=== PATIENT | female | born 1970 | race Caucasian/White ===

== ENCOUNTER 2017-03-26 18:49 | Inpatient (IN) | payer BC ==
[~2017-03-26] VITALS: Ht 152.4 cm; Wt 71.8 kg
[~2017-03-26 18:49] MED LIST: ALBU6.7H INH; CYCL-1 PO; DOCU-28 PO; HYDR-569 PO; NO HOME MEDS
[2017-03-26 19:41] LABS: BASOPHILS % (AUTO) 0.7 % (0-1); EOSINOPHILS # (AUTO) 0.1 X10'3 (0-0.9); EOSINOPHILS % (AUTO) 0.8 % (0-6); HEMATOCRIT 35.3 % (35.0-45.0); HEMOGLOBIN 12.3 g/dl (12.0-16.0); LYMPHOCYTES # (AUTO) 1.3 X10'3 (1.1-4.8); LYMPHOCYTES % (AUTO) 15.5 % (21-51); MEAN CORPUSCULAR HGB CONC 34.9 % (33.0-36.5); MEAN CORPUSCULAR VOLUME 83.2 FL (78-98); MEAN PLATELET VOLUME 7.6 FL (7.4-10.4); MONOCYTES # (AUTO) 0.6 X10'3 (0-0.9); MONOCYTES % (AUTO) 6.7 % (2-12); NEUTROPHILS # (AUTO) 6.6 X10'3 (1.8-7.7); NEUTROPHILS % (AUTO) 76.3 % (42-75); PLATELET COUNT 305 X10'3 (140-440); RED BLOOD COUNT 4.24 X10'6 (4.20-5.60); RED CELL DISTRIBUTION WIDTH 13.7 % (11.5-14.5); WHITE BLOOD COUNT 8.7 X10'3 (4.5-11.0)
[2017-03-26 19:42] LABS: BASOPHILS # (AUTO) 0.1 X10'3 (0-0.2)
[2017-03-26] MEDS ORDERED: aspirin 81mg tab.chew PO ONE (19:45)
[2017-03-26] MEDS ORDERED: nitroGLYCERIN 0.4mg SUBLingual tab SL PRN ×3 (19:45→21:10)
[2017-03-26 19:48] LABS: INR 0.9 INR; PARTIAL THROMBOPLASTIN TIME 27 SECONDS (22-32); PROTHROMBIN TIME 9.8 SECONDS (9.0-12.0)
[2017-03-26 19:54] LABS: ALANINE AMINOTRANSFERASE 47 U/L (12-78); ALBUMIN 3.7 G/DL (3.4-5.0); ALKALINE PHOSPHATASE 128 IU/L (46-116); ANION GAP 10 (8-16); ASPARTATE AMINO TRANSFERASE 23 U/L (10-37); BILIRUBIN,TOTAL 0.3 MG/DL (0.1-1.0); BLOOD UREA NITROGEN 16 MG/DL (7-18); CALCIUM 8.8 MG/DL (8.5-10.1); CHLORIDE 104 MMOL/L (99-107); GLUCOSE 112 MG/DL (70-104); POTASSIUM 3.5 MMOL/L (3.5-5.1); SODIUM 142 MMOL/L (135-145); TOTAL CARBON DIOXIDE 28.5 MMOL/L (24-32); TOTAL PROTEIN 7.5 G/DL (6.4-8.2); eGFR 60 ML/MIN
[2017-03-26 20:22] LABS: D-DIMER 0.35 MG/L FEU (0-0.50)
[2017-03-26] MEDS ORDERED: cyclobenzaprine 10mg tablet PO PRN (21:00)
[2017-03-26] MEDS ORDERED: temazepam 15mg capsule PO PRN (21:00)
[2017-03-26] MEDS ORDERED: acetaminophen 325mg tablet PO PRN ×2 (21:05)
[2017-03-26] MEDS ORDERED: bisacodyl 10mg suppository rectal RC PRN (21:05)
[2017-03-26] MEDS ORDERED: HYDROcodone/acetaminophen 5mg/325mg tablet PO PRN (21:05)
[2017-03-26] MEDS ORDERED: diphenhydrAMINE 50 mg/ml inj IV PRN (21:05)
[2017-03-26] MEDS ORDERED: ondansetron/PF 4mg/2ml inj IV PRN (21:05)
[2017-03-26] MEDS ORDERED: HYDROcodone/acetaminophen 10/325mg tab PO PRN (21:05)
[2017-03-26] MEDS ORDERED: mag hydrox/Alum hydrox/simeth 30ml oral suspension PO PRN (21:05)
[2017-03-26] MEDS ORDERED: metoclopramide 5 mg/ml inj IV PRN (21:05)
[2017-03-26] MEDS ORDERED: diphenhydrAMINE 25mg capsule PO PRN (21:05)
[2017-03-26] MEDS ORDERED: magnesium hydroxide 30ml (MOM) UD suspension PO PRN (21:05)
[2017-03-26] MEDS ORDERED: aminophylline 250mg/10ml inj. IV PRN (21:10)
[2017-03-26] MEDS ORDERED: metoprolol tartrate 1mg/ml inj IV PRN (21:10)
[2017-03-26] MEDS ORDERED: regadenoson 0.4mg/5ml syringe IV PRN (21:10)
[2017-03-26 21:31] LABS: LIPASE 93 U/L (73-393); MAGNESIUM 1.8 MG/DL (1.5-2.4)
[2017-03-26] MEDS: normal saline 1000ml 1,000 ML IV SCH (23:39)
[2017-03-27] VITALS (11 sets, daily range): BP systolic 102–118; BP diastolic 58–71
[2017-03-27] MEDS ORDERED: non-formulary drug (Albuterol Sulfate (Proventil Hfa) 2 PUFFS) INH SCH (02:00)
[2017-03-27 03:49] LABS: CLARITY,URINE CLEAR (Clear); COLOR,URINE STRAW (Yellow); GLUCOSE, URINE NEGATIVE (Neg); KETONES,URINE NEGATIVE (Neg); LEUKOCYTE ESTERASE ,URINE NEGATIVE (Neg); NITRITES, URINE NEGATIVE (Neg); OCCULT BLOOD,URINE NEGATIVE (Neg); PROTEIN,URINE NEGATIVE (Neg); UROBILINOGEN,URINE 0.2 E.U/dL (0.2-1.0)
[2017-03-27 03:54] LABS: UA COLLECTION TYPE NON-SPECIFIED
[2017-03-27 04:00] LABS: URINE AMPHETAMINE SCREEN NEGATIVE (Neg); URINE BARBITUATE SCREEN NEGATIVE (Neg); URINE BENZODIAZEPINES SCREEN NEGATIVE (Neg); URINE CANNABINOID SCREEN NEGATIVE (Neg); URINE COCAINE SCREEN NEGATIVE (Neg); URINE METHADONE SCREEN NEGATIVE (Neg); URINE OPIATE SCREEN NEGATIVE (Neg); URINE PHENCYCLIDINE SCREEN NEGATIVE (Neg)
[2017-03-27] MEDS: normal saline 1000ml 1,000 ML IV SCH ×2 (07:01→17:01)
[2017-03-27] MEDS ORDERED: pantoprazole 40mg Tablet.DR PO SCH (07:30)
[2017-03-27] MEDS ORDERED: enoxaparin 100mg/ml syringe SQ SCH (08:00)
[2017-03-27] MEDS ORDERED: metoprolol tartrate 12.5mg (1/2 tablet) PO SCH (08:00)
[2017-03-27] MEDS ORDERED: atorvastatin 10mg tablet PO SCH (08:00)
[2017-03-27] MEDS ORDERED: lisinopril 5mg tablet PO SCH (08:00)
[2017-03-27] MEDS ORDERED: aspirin 81mg tab.chew PO SCH (08:00)
[2017-03-27] MEDS ORDERED: docusate sod 100mg capsule PO SCH (08:00)
[2017-03-27] MEDS: albuterol 2.5 MG/3 ML nebule NEB SCH ×2 (08:01→14:28)
[2017-03-27 08:38] LABS: BASOPHILS % (AUTO) 0.6 % (0-1); EOSINOPHILS # (AUTO) 0.1 X10'3 (0-0.9); EOSINOPHILS % (AUTO) 1.1 % (0-6); HEMATOCRIT 32.7 % (35.0-45.0); HEMOGLOBIN 11.6 g/dl (12.0-16.0); LYMPHOCYTES # (AUTO) 1.2 X10'3 (1.1-4.8); LYMPHOCYTES % (AUTO) 17.2 % (21-51); MEAN CORPUSCULAR HEMOGLOBIN 29.4 PG (27.0-31.0); MEAN CORPUSCULAR HGB CONC 35.5 % (33.0-36.5); MEAN CORPUSCULAR VOLUME 82.8 FL (78-98); MEAN PLATELET VOLUME 7.4 FL (7.4-10.4); MONOCYTES # (AUTO) 0.7 X10'3 (0-0.9); MONOCYTES % (AUTO) 10.8 % (2-12); NEUTROPHILS # (AUTO) 4.9 X10'3 (1.8-7.7); NEUTROPHILS % (AUTO) 70.3 % (42-75); PLATELET COUNT 277 X10'3 (140-440); RED BLOOD COUNT 3.95 X10'6 (4.20-5.60); RED CELL DISTRIBUTION WIDTH 13.7 % (11.5-14.5); WHITE BLOOD COUNT 6.9 X10'3 (4.5-11.0)
[2017-03-27 08:48] LABS: ALANINE AMINOTRANSFERASE 50 U/L (12-78); ALBUMIN 3.4 G/DL (3.4-5.0); ALKALINE PHOSPHATASE 120 IU/L (46-116); ANION GAP 8 (8-16); ASPARTATE AMINO TRANSFERASE 24 U/L (10-37); BILIRUBIN,TOTAL 0.5 MG/DL (0.1-1.0); BLOOD UREA NITROGEN 13 MG/DL (7-18); BUN/CREATININE RATIO 16.3 (6.6-38.0); CALCIUM 8.8 MG/DL (8.5-10.1); CHLORIDE 108 MMOL/L (99-107); CHOL/HDL RATIO 4.9 (0.00-4.99); CHOLESTEROL 201 MG/DL (0-200); GLUCOSE 93 MG/DL (70-104); HDL CHOLESTEROL 41 MG/DL (35-60); LDL CHOLESTEROL 131 MG/DL (50-100); POTASSIUM 4.3 MMOL/L (3.5-5.1); SODIUM 142 MMOL/L (135-145); TOTAL CARBON DIOXIDE 26.1 MMOL/L (24-32); TOTAL PROTEIN 6.8 G/DL (6.4-8.2); TRIGLYCERIDES 113 MG/DL (20-135); eGFR 78 ML/MIN
[2017-03-27] MEDS ORDERED: regadenoson 0.4mg/5ml syringe IV ONE (09:23)
[2017-03-27] MEDS ORDERED: aminophylline inj. 10 ML IV ONE (09:23)
[2017-03-27] MEDS ORDERED: OMEP20CA10 PO (13:37)
== END 2017-03-27 17:05 | disposition home or self-care (01) | DRG 311 ==
LOC: ER 18:50 → ED HOLD 21:07 → SUR 3N 03-27 03:15
PROVIDERS: ADMIT Family Medicine; ATTEND Internal Medicine
PROC: 4A02XM4 Measurement of Cardiac Total Activity, External Approach (ICD-10-PCS; principal; 2017-03-27)
PROC: 3E073KZ Introduction of Other Diagnostic Substance into Coronary Artery, Percutaneous Approach (ICD-10-PCS; 2017-03-27)
DX: I24.9 Acute ischemic heart disease, unspecified (principal); E86.0 Dehydration; F17.210 Nicotine dependence, cigarettes, uncomplicated; K31.9 Disease of stomach and duodenum, unspecified; F41.9 Anxiety disorder, unspecified; G89.29 Other chronic pain; M54.9 Dorsalgia, unspecified; R07.2 Precordial pain; Z79.899 Other long term (current) drug therapy; Z87.442 Personal history of urinary calculi; Z90.710 Acquired absence of both cervix and uterus
CPT/HCPCS: 36415; 71045; 78452; 80053; 80061; 80305; 81003; 83036; 83690; 83735; 83880; 84484; 85025; 85379; 85610; 85730; 87070; 93005; 94640; 94760; 99291; A9500; J0280; J1650; J2405; J7030

== ENCOUNTER 2017-12-13 14:21 | Emergency (ER) | payer BC, OTHER ==
[~2017-12-13] VITALS: Ht 149.9 cm; Wt 79.0 kg
[~2017-12-13 14:21] MED LIST changes: -ALBU6.7H INH; -CYCL-1 PO; -DOCU-28 PO; -HYDR-569 PO; -NO HOME MEDS; +OMEP20CA10 PO
[2017-12-13 14:35] VITALS: BP 131/69
== END 2017-12-13 15:58 | disposition home or self-care (01) ==
LOC: ER 14:22
DX: S60.512A Abrasion of left hand, initial encounter (principal); G89.29 Other chronic pain; Z91.040 Latex allergy status; Z79.899 Other long term (current) drug therapy; Z87.442 Personal history of urinary calculi; Z90.710 Acquired absence of both cervix and uterus; Z98.890 Other specified postprocedural states; W20.8XXA Other cause of strike by thrown, projected or falling object, initial encounter; Y93.89 Activity, other specified; Y92.89 Other specified places as the place of occurrence of the external cause; Y99.8 Other external cause status
CPT/HCPCS: 73110; 73130; 99284

== ENCOUNTER 2018-12-09 13:38 | Emergency (ER) | payer OTHER ==
[~2018-12-09] VITALS: Ht 149.9 cm; Wt 74.0 kg
[~2018-12-09 13:38] MED LIST changes: -OMEP20CA10 PO; +OMEP20CA11 PO
[2018-12-09 14:07] VITALS: BP 125/75
--- NOTE | 2018-12-09 14:37 | NUR ---
PATIENT C/O PAIN IN RIGHT WRIST X 3 DAYS. DENIES INJURY. STATES SHE IS HAVING PRESSURE AND PAIN IN RIGHT EAR FOR THE PAST DAY, POSSIBLY SINUS ISSUE.
[2018-12-09] MEDS ORDERED: ACYC-202 PO (15:45)
== END 2018-12-09 16:03 | disposition home or self-care (01) ==
LOC: ER 13:39
DX: M25.531 Pain in right wrist (principal); R51 Headache; G89.29 Other chronic pain; F41.9 Anxiety disorder, unspecified; Z87.442 Personal history of urinary calculi; Z90.710 Acquired absence of both cervix and uterus; Z98.890 Other specified postprocedural states; Z91.040 Latex allergy status; Z79.899 Other long term (current) drug therapy
CPT/HCPCS: 73110; 99283

== ENCOUNTER 2019-04-08 18:23 | Emergency (ER) | payer MEDICAID, OTHER ==
[~2019-04-08] VITALS: Ht 149.9 cm; Wt 74.0 kg
[~2019-04-08 18:23] MED LIST changes: -OMEP20CA11 PO; +OMEP20CA15 PO
[2019-04-08 18:56] LABS: BASOPHILS # (AUTO) 0.1 X10'3 (0-0.2); BASOPHILS % (AUTO) 0.4 % (0-1); EOSINOPHILS % (AUTO) 0.1 % (0-6); HEMATOCRIT 37.7 % (35.0-45.0); LYMPHOCYTES # (AUTO) 0.9 X10'3 (1.1-4.8); LYMPHOCYTES % (AUTO) 5.4 % (21-51); MEAN CORPUSCULAR HGB CONC 34.6 g/dL (33.0-36.5); MEAN CORPUSCULAR VOLUME 83.9 FL (78-98); MEAN PLATELET VOLUME 7.1 FL (7.4-10.4); MONOCYTES # (AUTO) 0.9 X10'3 (0-0.9); MONOCYTES % (AUTO) 5.5 % (2-12); NEUTROPHILS # (AUTO) 14.4 X10'3 (1.8-7.7); NEUTROPHILS % (AUTO) 88.6 % (42-75); PLATELET COUNT 353 X10'3 (140-440); RED CELL DISTRIBUTION WIDTH 14.3 % (11.5-14.5); WHITE BLOOD COUNT 16.2 X10'3 (4.5-11.0)
[2019-04-08 19:06] LABS: ALANINE AMINOTRANSFERASE 24 U/L (12-78); ALBUMIN 3.9 G/DL (3.4-5.0); ALBUMIN/GLOBULIN RATIO 1.1 (1.1-1.5); ALKALINE PHOSPHATASE 115 IU/L (46-116); ANION GAP 8 (8-16); ASPARTATE AMINO TRANSFERASE 11 U/L (10-37); BILIRUBIN,TOTAL 0.5 MG/DL (0.1-1.0); BLOOD UREA NITROGEN 11 MG/DL (7-18); BUN/CREATININE RATIO 12.8 (6.6-38.0); CALCIUM 8.8 MG/DL (8.5-10.1); CHLORIDE 105 MMOL/L (99-107); CREATININE 0.86 MG/DL (0.40-0.90); GLUCOSE 101 MG/DL (70-104); LIPASE 71 U/L (73-393); SODIUM 139 MMOL/L (135-145); TOTAL CARBON DIOXIDE 26.3 MMOL/L (24-32); TOTAL PROTEIN 7.6 G/DL (6.4-8.2); eGFR 71 ML/MIN
[2019-04-08 19:12] LABS: URINE HCG NEGATIVE (NEG)
[2019-04-08 19:15] LABS: CLARITY,URINE SLIGHTLY CLOUDY (Clear); COLOR,URINE YELLOW (Yellow); GLUCOSE, URINE NEGATIVE (Neg); KETONES,URINE NEGATIVE (Neg); LEUKOCYTE ESTERASE ,URINE NEGATIVE (Neg); NITRITES, URINE NEGATIVE (Neg); OCCULT BLOOD,URINE NEGATIVE (Neg); PROTEIN,URINE NEGATIVE (Neg); UROBILINOGEN,URINE 0.2 E.U/dL (0.2-1.0)
[2019-04-08 19:18] LABS: UA COLLECTION TYPE CLN CATCH MIDSTREAM
[2019-04-08] MEDS ORDERED: NO HOME MEDS (19:19)
[2019-04-08] MEDS ORDERED: ondansetron 4mg rapidly disintigrating tab PO ONE (19:20)
[2019-04-08 19:27] LABS: BACTERIA,URINE FEW /HPF (Neg); RBC,URINE NONE SEEN /HPF (0-2); SQUAMOUS EPITHELIAL CELL,UR MANY /LPF (FEW); WBC,URINE 0-4 /HPF (0-4)
[2019-04-08] MEDS ORDERED: ibuprofen tablet 400 MG TABLET PO ONE (19:30)
[2019-04-08] MEDS ORDERED: ibuprofen 200mg tablet PO ONE (19:35)
[2019-04-08] MEDS ORDERED: AMOX-117 PO (20:13)
[2019-04-08] MEDS ORDERED: TAM75C PO (20:13)
--- NOTE | 2019-04-08 20:43 | NUR ---
MILKA TRAVIS MADE AWARE OF PTS BP OF 90/54. PT HAS NOT HYDRATED MUCH TODAY D/T NAUSEA. SHE FEELS LIKE SHE IS DEHYDRATED. PT GIVEN A BOLUS OF FLUIDS PER ORDER
[2019-04-08] MEDS ORDERED: normal saline 1000ml 1,000 ML IV ONE (20:45)
[2019-04-08] MEDS ORDERED: ONDA4TAB6 PO (21:12)
[2019-04-08 21:22] VITALS: BP 95/52
== END 2019-04-08 21:27 | disposition home or self-care (01) ==
LOC: ER 18:23
DX: J06.9 Acute upper respiratory infection, unspecified (principal); B97.89 Other viral agents as the cause of diseases classified elsewhere; K57.92 Diverticulitis of intestine, part unspecified, without perforation or abscess without bleeding; G89.29 Other chronic pain; F41.9 Anxiety disorder, unspecified; Z87.442 Personal history of urinary calculi; Z90.710 Acquired absence of both cervix and uterus; Z98.890 Other specified postprocedural states; Z91.040 Latex allergy status; Z79.899 Other long term (current) drug therapy
CPT/HCPCS: 36415; 71045; 80053; 81001; 81025; 83605; 83690; 84145; 85025; 87040; 87502; 87503; 99284; J7030

== ENCOUNTER 2019-04-12 13:25 | Emergency (ER) | payer MEDICAID, OTHER ==
[~2019-04-12] VITALS: Ht 149.9 cm; Wt 75.5 kg
[~2019-04-12 13:25] MED LIST changes: +AMOX-117 PO; +NO HOME MEDS; -OMEP20CA15 PO; +ONDA4TAB6 PO; +TAM75C PO
[2019-04-12 13:45] VITALS: BP 126/71
[2019-04-12] MEDS ORDERED: ibuprofen tablet 400 MG TABLET PO ONE (14:15)
[2019-04-12] MEDS ORDERED: diphenhydrAMINE 25 MG/10 ML UD oral solution PO ONE (14:15)
== END 2019-04-12 14:36 | disposition home or self-care (01) ==
LOC: ER 13:25
DX: J06.9 Acute upper respiratory infection, unspecified (principal); H92.03 Otalgia, bilateral; G89.29 Other chronic pain; F41.9 Anxiety disorder, unspecified; Z87.442 Personal history of urinary calculi; Z98.890 Other specified postprocedural states; Z90.710 Acquired absence of both cervix and uterus; Z91.040 Latex allergy status; Z79.899 Other long term (current) drug therapy
CPT/HCPCS: 99283; Q0163

== ENCOUNTER 2019-04-24 08:08 | Emergency (ER) | payer MEDICAID, OTHER ==
[~2019-04-24] VITALS: Ht 121.9 cm; Wt 74.9 kg
[~2019-04-24 08:08] MED LIST changes: -AMOX-117 PO; -TAM75C PO
[2019-04-24] MEDS ORDERED: normal saline 1000ML IV soln IVB ONE ×2 (10:05→11:05)
[2019-04-24 10:30] LABS: BASOPHILS % (AUTO) 0.3 % (0-1); EOSINOPHILS # (AUTO) 0.1 X10'3 (0-0.9); EOSINOPHILS % (AUTO) 1.4 % (0-6); HEMATOCRIT 39.3 % (35.0-45.0); HEMOGLOBIN 13.1 g/dl (12.0-16.0); LYMPHOCYTES # (AUTO) 1.8 X10'3 (1.1-4.8); LYMPHOCYTES % (AUTO) 22.8 % (21-51); MEAN CORPUSCULAR HEMOGLOBIN 28.4 PG (27.0-31.0); MEAN CORPUSCULAR HGB CONC 33.4 g/dL (33.0-36.5); MEAN PLATELET VOLUME 7.1 FL (7.4-10.4); MONOCYTES # (AUTO) 0.5 X10'3 (0-0.9); MONOCYTES % (AUTO) 6.8 % (2-12); NEUTROPHILS # (AUTO) 5.6 X10'3 (1.8-7.7); NEUTROPHILS % (AUTO) 68.7 % (42-75); PLATELET COUNT 419 X10'3 (140-440); RED BLOOD COUNT 4.62 X10'6 (4.20-5.60); WHITE BLOOD COUNT 8.1 X10'3 (4.5-11.0)
[2019-04-24 10:43] LABS: ALANINE AMINOTRANSFERASE 20 U/L (12-78); ALBUMIN 3.7 G/DL (3.4-5.0); ALBUMIN/GLOBULIN RATIO 0.9 (1.1-1.5); ALKALINE PHOSPHATASE 120 IU/L (46-116); ANION GAP 10 (8-16); ASPARTATE AMINO TRANSFERASE 13 U/L (10-37); BILIRUBIN,TOTAL 0.2 MG/DL (0.1-1.0); BLOOD UREA NITROGEN 15 MG/DL (7-18); CALCIUM 8.9 MG/DL (8.5-10.1); CHLORIDE 106 MMOL/L (99-107); CREATININE 0.75 MG/DL (0.40-0.90); GLUCOSE 95 MG/DL (70-104); SODIUM 142 MMOL/L (135-145); TOTAL CARBON DIOXIDE 26.5 MMOL/L (24-32); TOTAL PROTEIN 7.7 G/DL (6.4-8.2); eGFR 83 ML/MIN
[2019-04-24] MEDS ORDERED: ketorolac tromethamine 15mg/ml inj. IV ONE (11:05)
[2019-04-24] MEDS ORDERED: L. R1CAP4 PO (11:55)
[2019-04-24] MEDS ORDERED: AMOX500C2 PO (11:55)
[2019-04-24 11:56] VITALS: BP 111/73
== END 2019-04-24 12:14 | disposition home or self-care (01) ==
LOC: ER 08:08
DX: J32.9 Chronic sinusitis, unspecified (principal); G89.29 Other chronic pain; Z87.442 Personal history of urinary calculi; Z87.440 Personal history of urinary (tract) infections; Z90.710 Acquired absence of both cervix and uterus; Z98.890 Other specified postprocedural states; Z91.040 Latex allergy status
CPT/HCPCS: 36415; 80053; 83605; 85025; 93005; 96374; 99284; J1885; J7030

== ENCOUNTER 2021-01-26 07:39 | Emergency (ER) | payer MEDICAID ==
[~2021-01-26] VITALS: Ht 149.9 cm; Wt 75.0 kg
[~2021-01-26 07:39] MED LIST changes: +L. R1CAP4 PO
[2021-01-26 07:47] VITALS: BP 137/74
[2021-01-26] MEDS ORDERED: AMOX-422 PO (08:36)
[2021-01-26] MEDS ORDERED: PROC-8 PO (08:36)
== END 2021-01-26 09:09 | disposition home or self-care (01) ==
LOC: ER 07:40
DX: J01.90 Acute sinusitis, unspecified (principal); R05.9 Cough, unspecified; R07.89 Other chest pain; R06.02 Shortness of breath; G43.909 Migraine, unspecified, not intractable, without status migrainosus; G89.29 Other chronic pain; F41.9 Anxiety disorder, unspecified; Z87.442 Personal history of urinary calculi; Z87.440 Personal history of urinary (tract) infections; Z90.710 Acquired absence of both cervix and uterus; Z98.890 Other specified postprocedural states; Z91.040 Latex allergy status; Z79.2 Long term (current) use of antibiotics
CPT/HCPCS: 71045; 93005; 99283

== ENCOUNTER 2021-05-22 11:10 | Emergency (ER) | payer MEDICAID ==
[~2021-05-22] VITALS: Ht 149.9 cm; Wt 75.0 kg
[~2021-05-22 11:10] MED LIST changes: +PROC-8 PO
[2021-05-22 11:28] VITALS: BP 122/70
== END 2021-05-22 12:10 | disposition home or self-care (01) ==
LOC: ER 11:11
DX: S90.31XA Contusion of right foot, initial encounter (principal); G89.29 Other chronic pain; Z87.19 Personal history of other diseases of the digestive system; Z87.442 Personal history of urinary calculi; Z87.440 Personal history of urinary (tract) infections; Z86.19 Personal history of other infectious and parasitic diseases; Z90.710 Acquired absence of both cervix and uterus; Z91.040 Latex allergy status; Z79.899 Other long term (current) drug therapy; Z87.81 Personal history of (healed) traumatic fracture; W20.8XXA Other cause of strike by thrown, projected or falling object, initial encounter; Y93.89 Activity, other specified; Y92.89 Other specified places as the place of occurrence of the external cause; Y99.8 Other external cause status
CPT/HCPCS: 73630; 99283

== ENCOUNTER 2023-09-21 10:33 | Outpatient (CLI) | payer MEDICAID | END 2023-09-21 23:59 | disposition home or self-care (01) | LOC: MRI 10:33 | PROVIDERS: ATTEND Orthopaedic Surgery | DX: M75.111 Incomplete rotator cuff tear or rupture of right shoulder, not specified as traumatic (principal); M75.01 Adhesive capsulitis of right shoulder; M75.21 Bicipital tendinitis, right shoulder; M75.41 Impingement syndrome of right shoulder; M75.51 Bursitis of right shoulder | CPT/HCPCS: 73221 ==